=== PATIENT | male | born 1980 | race Caucasian/White ===

== ENCOUNTER → 2020-07-01 | Outpatient (CLI) | payer OTHER ==
[2020-07-02 15:54] LABS: U Amphetamine Screen Not Detected; U Barbituate Screen Not Detected; U Benzodiazapine Screen Not Detected; U Buprenorphine Screen Not Detected; U Cannabinoids Screen Not Detected; U Cocaine Screen Not Detected; U Methadone Screen Not Detected; U Methamphetamine Screen Not Detected; U Opiates Screen Not Detected; U Oxycodone Screen Not Detected; U Phencyclidine Screen Not Detected; U Propoxyphene Screen Not Detected
== END | disposition home or self-care (01) ==
LOC: LAB SHORT 14:19 → LAB 14:19 → LAB SHORT 07-02 14:19
PROVIDERS: Internal Medicine Critical Care Medicine
DX: R40.0 Somnolence (principal)

== ENCOUNTER 2023-08-31 11:08 | Emergency (ER) | payer BC ==
[~2023-08-31] VITALS: Ht 185.4 cm; Wt 111.1 kg
[2023-08-31 12:04] LABS: BASOPHILS ABSOLUTE AUTO 0.03 K/mm3 (0.00-0.23); BASOPHILS PERCENT AUTO 0 % (0-2); EOSINOPHILS ABSOLUTE AUTO 0.43 K/mm3 (0.00-0.68); EOSINOPHILS PERCENT AUTO 6 % (0-6); Hematocrit 41.8 % (37.0-53.0); Hemoglobin 14.2 g/dL (13.5-17.5); IMMATURE GRAN ABSOLUTE AUTO 0.02 K/mm3 (0.00-0.10); IMMATURE GRAN PERCENT AUTO 0 % (0-1); LYMPHOCYTES ABSOLUTE AUTO 2.04 K/mm3 (0.84-5.20); LYMPHOCYTES PERCENT AUTO 29 % (21-46); MONOCYTES ABSOLUTE AUTO 0.56 K/mm3 (0.16-1.47); MONOCYTES PERCENT AUTO 8 % (4-13); Mean Corpuscular HGB 30.2 pg (26.0-34.0); Mean Corpuscular Volume 89 fL (80-100); Mean Platelet Volume 10.7 fL (9.1-12.4); NEUTROPHILS ABSOLUTE AUTO 4.05 K/mm3 (1.96-9.15); NEUTROPHILS PERCENT AUTO 57 % (41-73); Platelet Count 211 K/mm3 (150-400); RDW Coefficient Variation 13.4 % (11.7-14.2); RDW Standard Deviation 43.9 fL (35.1-46.3); White Blood Cell Count 7.13 K/mm3 (4.00-11.30)
[2023-08-31 12:26] VITALS: BP 128/81
[2023-08-31 12:27] LABS: Albumin, Blood 4.1 g/dL (3.4-5.0); Albumin/Globulin Ratio 1.1 (0.8-1.8); Bilirubin, Total 0.4 mg/dL (0.1-1.0); Bun/Creatinine Ratio 13.1 (12.0-20.0); Calcium, Blood 9.3 mg/dL (8.5-10.1); Creatinine, Blood 0.92 mg/dL (0.60-1.20); Globulin, Blood 3.8 g/dL (2.2-4.0); Potassium, Blood 4.2 mmol/L (3.5-5.5); Total Protein, Blood 7.9 g/dL (6.4-8.2)
[2023-08-31] MEDS ORDERED: GLATIRAMER40 MG/1 ML SC (12:28)
[2023-08-31] MEDS ORDERED: DULOXETINE HCL60 M1 PO (12:29)
[2023-08-31 12:50] LABS: Source, Urine Clean Catch
[2023-08-31 12:54] LABS: Appearance, Urine Clear (Clear); Bilirubin, Urine Neg (Neg); Blood, Urine Neg (Neg); Color, Urine Yellow (P-Yellow); Glucose Qualitative, Urine Neg (Neg); Ketones, Urine Neg (Neg); Leukocyte Esterase, Urine Neg (Neg); Nitrite, Urine Neg (Neg); Protein, Urine Neg (Neg); Specific Gravity, Urine 1.015 (1.003-1.022); Urobilinogen, Urine NORM (Normal)
[2023-08-31] MEDS ORDERED: CYCL10 PO (13:00)
== END 2023-08-31 13:13 | disposition home or self-care (01) ==
LOC: ER 11:08
PROVIDERS: Emergency Medicine
DX: R10.33 Periumbilical pain (principal); K42.9 Umbilical hernia without obstruction or gangrene
CPT/HCPCS: 74177; 80053; 81003; 85025; 96374-59; 96375; 99284-25; J2405; J3010; Q9967

== ENCOUNTER 2024-12-24 13:50 | Emergency (ER) | payer OTHER ==
[~2024-12-24] VITALS: Ht 185.4 cm; Wt 122.5 kg
[~2024-12-24 13:50] MED LIST: CYCL10 PO; DULOXETINE HCL60 M1 PO; GLATIRAMER40 MG/1 ML SC
[2024-12-24 14:13] VITALS: BP 137/77
== END 2024-12-24 15:30 | disposition home or self-care (01) ==
LOC: ER 13:50
DX: S89.81XA Other specified injuries of right lower leg, initial encounter (principal); X58.XXXA Exposure to other specified factors, initial encounter; Z79.899 Other long term (current) drug therapy
CPT/HCPCS: 29505; 73562-RT; 99284-25